=== PATIENT | female | born 1975 | race Caucasian/White ===

== ENCOUNTER 2022-05-24 14:30 | Emergency (ER) | payer MEDICAID, SELFPAY ==
[2022-05-24 14:38] VITALS: BP 182/108; PULSE 80; RESP 16; TEMP 37.1; O2SAT 100
--- NOTE | 2022-05-24 16:48 | ECG_ITS ---
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 Measurements Intervals [place] Rate: 72 P: 56 AK: 171 QRS: 55 QRSD: 86 T: 58 QT: 386 QTc: 424 Interpretive Statements SINUS RHYTHM POSSIBLE RIGHT VENTRICULAR CONDUCTION DELAY [RSR (QR) IN V1/V2] No previous ECG available for comparison Electronically Signed On 05-25-2022 19:45:54 INDUSTRIAL CONTROLLER by Herb Moon M.D. [email or web address] ([email or web address] va medical centerCraigsBlueBookwestern reserve hospitalPractice Management [id number]
--- NOTE | 2022-05-24 16:48 | ED_ITS ---
Documented by User: Francisco Gunderson DO 05/25/22 12:17 HPI - Dizziness General: Chief Complaint: Dizziness Stated Complaint: high BP Time Seen by Provider: 05/24/22 16:47 Source: patient Mode of arrival: ambulatory Limitations: no limitations History of Present Illness: HPI Narrative: 47-year-old female presents emergency room complaining of elevated blood pressure. She did elevated blood pressure at home was lightheaded and dizzy.She is felt nauseous as well. She has had similar episodes in the past unfortunately she is not on any blood pressure medications recently. She denies any chest pain or shortness of breath no abdominal pain. No cough fever sweats or chills. MD elicited complaint: dizziness and lightheadedness Onset (ago): hour(s) Timing: gradual onset Severity: moderate Description: lightheadedness and off-balance History of similar symptoms: Yes Exacerbating factors: nothing Relieving factors: nothing Associated symptoms: Reports headache(s); Denies change in hearing, chest pain, chills, cough, diaphoresis, ear discharge, ear pressure, fevers/chills, malaise, nausea, nasal congestion, palpitations, rash, short of breath, syncope, tinnitus, vomiting or weakness Associated neuro symptoms: Deny confusion, difficulty speaking, dysphagia, diplopia, extremity weakness, facial numbness, facial weakness, gait changes, numbness in extremities or visual changes Review of Systems Const: Reports: fatigue; Denies: fever(s), chills, malaise or diaphoresis ENMT: Denies: ear discharge, change in hearing, tinnitus or nasal congestion Card: Denies: chest pain, palpitations or syncope Resp: Denies: dyspnea, productive cough or non-productive cough GI: Denies: abdominal pain, nausea, vomiting or dysphagia : Denies: flank pain, difficulty voiding, dysuria, urinary frequency or urinary urgency Skin/Breast: Denies: rash or pruritus Neuro: Reports: headache(s); Denies: numbness in extremities or confusion PFS ED PFSH: Medical History (Updated 05/25/22 @ 12:16 by Francisco Gunderson DO) Hypertension Social History (Updated 05/25/22 @ 12:16 by Francisco Gunderson DO) Smoking and tobacco status: never smoked Second hand smoke exposure: No Alcohol intake: current Alcohol intake frequency: holidays/special occasions only Physical Exam Const: COMMON NORMALS: no acute distress GENERAL APPEARANCE: cooperative and comfortable ORIENTATION/CONSCIOUSNESS: Yes awake, Yes oriented to person, Yes oriented to place and Yes oriented to time HENMT: COMMON NORMALS: normocephalic, atraumatic, hearing grossly normal bilaterally, external ears normal, EAC's normal, TM's normal bilaterally, Normal nasal mucous membranes and turbinates present, moist oral mucous membranes and oropharynx normal HEAD & SCALP: normocephalic and atraumatic NOSE: Normal nasal mucous membranes and turbinates present EXTERNAL EAR: Yes external ears normal EXTERNAL AUDITORY CANAL: EAC's normal TYMPANIC MEMBRANE: TM's normal bilaterally Eye: COMMON NORMALS: Equal, round and reactive pupils present, EOMs intact bilaterally, conjunctivae normal and no scleral icterus CONJUNCTIVA: Yes conjunctivae normal PUPIL: Yes Equal, round and reactive pupils present Neck/C-Spine: COMMON NORMALS: full ROM, no lymphadenopathy, supple and no JVD Lymph: LYMPHATIC: no lymphadenopathy noted and no lymphedema noted Resp: COMMON NORMALS: normal respiratory effort, No retractions, No use of accessory muscles and clear to auscultation bilaterally AUSCULTATION: clear to auscultation bilaterally Cardio: COMMON NORMALS: no JVD, regular rate, regular rhythm and No murmurs present (Cardio) RATE: regular rate RHYTHM: regular rhythm GI: COMMON NORMALS: Soft to palpation and No hepatosplenomegaly present AUSCULTATION: Yes normoactive bowel sounds PALPATION: Yes Soft to palpation, No Tenderness to palpation present (GI), No Guarding due to palpation present (GI) and Yes No hepatosplenomegaly present Extremity: COMMON NORMALS: normal to inspection, capillary refill normal, no clubbing, cyanosis or edema, no calf tenderness and no pedal edema Neuro: SENSORIUM/ORIENTATION: Yes oriented to person, Yes oriented to place and Yes oriented to time Skin: COMMON NORMALS: no rashes or lesions noted GENERAL SKIN EXAM: no rashes or lesions noted Course Vital Signs: Vital signs: Vital Signs Temperature 98.2 F 05/24/22 20:39 Pulse Rate 92 05/24/22 20:39 Respiratory Rate 16 05/24/22 20:39 Blood Pressure 138/97 05/24/22 20:39 Pulse Oximetry 96 05/24/22 20:39 MDM - Dizziness Medical Decision Making Initial medications given for blood pressure control. She has had some slight improvement. Labs pending. Care signed out to Dr. Montelongo at change of shift. See final notes for diagnosis and disposition. 47-year-old female checked out to me by Dr. Gunderson at shift change. This lady has been dizzy. She is also quite hypertensive on arrival. Blood pressure is improved after administration of labetalol, hydralazine, and amlodipine and metoprolol orally. CBC is not remarkable. BMP is not remarkable. Head CT is nonacute. TSH is normal. BNP is normal. EKG shows no acute findings. Dizziness is improved after blood pressure is improved. She complained of a headache as well, and this is treated as well. She is now asking for a snack. She will be allowed discharge, but on antihypertensives. PCP follow-up. To return if worsening. Lab Data 05/24/22 17:02 05/24/22 17:[address] 05/24/22 18:55 IMPRESSION: No acute intracranial abnormality. Laboratory Results WBC 7.5 10^3/uL (4.0-10.0) 05/24/22 17:02 RBC 4.59 10^6/uL (4.1-5.3) 05/24/22 17:02 Hgb 14.3 g/dL (11.5-15.3) 05/24/22 17:02 Hct 42.0 % (37.0-47.0) 05/24/22 17:02 MCV 91.5 fl (81-99) 05/24/22 17:02 MCH 31.2 pg (28.0-34.0) 05/24/22 17:02 MCHC 34.0 g/dL (30.0-36.0) 05/24/22 17:02 RDW 12.6 % (12.1-15.1) 05/24/22 17:02 Plt Count 258 10^3/cmm (130-400) 05/24/22 17:02 MPV 10.2 fL (7.4-10.4) 05/24/22 17:02 Neut % (Auto) 73.6 % 05/24/22 17:02 Lymph % (Auto) 18.7 % 05/24/22 17:02 [place] % (Auto) 5.7 % 05/24/22 17:02 Eos % (Auto) 1.3 % 05/24/22 17:02 Baso % (Auto) 0.4 % 05/24/22 17:02 Neut # (Auto) 5.50 10^3/uL (1.8-7.7) 05/24/22 17:02 Lymph # (Auto) 1.4 10^3/uL (0.8-4.8) 05/24/22 17:02 [place] # (Auto) 0.4 10^3/uL (0.2-0.9) 05/24/22 17:02 Eos # (Auto) 0.1 10^3/uL (0.0-0.8) 05/24/22 17:02 Baso # (Auto) 0.0 10^3/uL (0.0-0.1) 05/24/22 17:02 Nucleated RBC % (auto) 0 % 05/24/22 17:02 Nucleated RBCs # 0.0 /100WBC 05/24/22 17:02 Sodium 139 mmol/L (136-145) 05/24/22 17:02 Potassium 3.8 mmol/L (3.5-5.1) 05/24/22 17:02 Chloride 100 mmol/L (98-107) 05/24/22 17:02 Carbon Dioxide 27 mmol/L (22-29) 05/24/22 17:02 Anion Gap 15.8 (5-19) 05/24/22 17:02 BUN 10 mg/dL (6-20) 05/24/22 17:02 Creatinine 0.7 mg/dL (0.5-0.9) 05/24/22 17:02 GFR Calculation 90.5 mL/min (90-130) 05/24/22 17:02 Glucose 108 mg/dL (65-115) 05/24/22 17:02 Calculated Osmolality 288 mOsm/kg (285-295) 05/24/22 17:02 Calcium 10.1 mg/dL (8.5-10.5) 05/24/22 17:02 Total Bilirubin 0.8 mg/dL (0.15-1.2) 05/24/22 17:02 AST 13 U/L (0-32) 05/24/22 17:02 ALT 16 U/L (0-33) 05/24/22 17:02 Alkaline Phosphatase 75 U/L (35-105) 05/24/22 17:02 NT-Pro-B Natriuret Pep 31 pg/mL (0-125) 05/24/22 17:02 Total Protein 7.9 g/dL (6.6-8.7) 05/24/22 17:02 Albumin 4.8 g/dL (3.5-5.2) 05/24/22 17:02 Globulin 3.1 g/dL (1.3-4.6) 05/24/22 17:02 TSH 0.96 uIU/mL (0.27-4.20) 05/24/22 17:02 Discharge Plan Discharge Patient Disposition: Home Clinical Impression: Hypertension, Dizziness Condition: Stable Prescriptions: New amlodipine 10 mg tablet 10 mg PO DAILY Qty: 30 0RF Discharge Orders: Discharge ED (Routine); Ordered 05/24/22 Ordered By: Bassam Montelongo Patient Instructions: Hypertension (ED), Dizziness (ED) Activity Restrictions/Additional Instructions: Check your blood pressure twice daily. If numbers are staying above 150/90, take the medication you were prescribed. See your doctor in follow-up. Return for any worsening headache, mental status changes, weakness, worsening dizziness, vomiting, chest discomfort, other concerning symptoms. Coding Level of Care Code ED Cloth Colorer for Chg Fwd Exam Comprehensive Documented by User: Bassam Montelongo DO 05/25/22 16:36 HPI - Dizziness 2 General: Chief Complaint: Dizziness Stated Complaint: high BP Time Seen by Provider: 05/24/22 16:47 PFSH ED PFSH: Medical History (Updated 05/25/22 @ 12:16 by Francisco Gunderson DO) Hypertension Social History (Updated 05/25/22 @ 12:16 by Francisco Gunderson DO) Smoking and tobacco status: never smoked Second hand smoke exposure: No Alcohol intake: current Alcohol intake frequency: holidays/special occasions only Course Vital Signs: Vital signs: Vital Signs Temperature 98.2 F 05/24/22 20:39 Pulse Rate 92 05/24/22 20:39 Respiratory Rate 16 05/24/22 20:39 Blood Pressure 138/97 05/24/22 20:39 Pulse Oximetry 96 05/24/22 20:39 MDM - Dizziness Medical Decision Making 47-year-old female checked out to me by Dr. Gunderson at shift change. This lady has been dizzy. She is also quite hypertensive on arrival. Blood pressure is improved after administration of labetalol, hydralazine, and amlodipine and metoprolol orally. CBC is not remarkable. BMP is not remarkable. Head CT is nonacute. TSH is normal. BNP is normal. EKG shows no acute findings. Dizziness is improved after blood pressure is improved. She complained of a headache as well, and this is treated as well. She is now asking for a snack. She will be allowed discharge, but on antihypertensives. PCP follow-up. To return if worsening. Lab Data 05/24/22 17:02 05/24/22 17:[address] 05/24/22 18:55 IMPRESSION: No acute intracranial abnormality. Laboratory Results WBC 7.5 10^3/uL (4.0-10.0) 05/24/22 17:02 RBC 4.59 10^6/uL (4.1-5.3) 05/24/22 17:02 Hgb 14.3 g/dL (11.5-15.3) 05/24/22 17:02 Hct 42.0 % (37.0-47.0) 05/24/22 17:02 MCV 91.5 fl (81-99) 05/24/22 17:02 MCH 31.2 pg (28.0-34.0) 05/24/22 17:02 MCHC 34.0 g/dL (30.0-36.0) 05/24/22 17:02 RDW 12.6 % (12.1-15.1) 05/24/22 17:02 Plt Count 258 10^3/cmm (130-400) 05/24/22 17:02 MPV 10.2 fL (7.4-10.4) 05/24/22 17:02 Neut % (Auto) 73.6 % 05/24/22 17:02 Lymph % (Auto) 18.7 % 05/24/22 17:02 [place] % (Auto) 5.7 % 05/24/22 17:02 Eos % (Auto) 1.3 % 05/24/22 17:02 Baso % (Auto) 0.4 % 05/24/22 17:02 Neut # (Auto) 5.50 10^3/uL (1.8-7.7) 05/24/22 17:02 Lymph # (Auto) 1.4 10^3/uL (0.8-4.8) 05/24/22 17:02 [place] # (Auto) 0.4 10^3/uL (0.2-0.9) 05/24/22 17:02 Eos # (Auto) 0.1 10^3/uL (0.0-0.8) 05/24/22 17:02 Baso # (Auto) 0.0 10^3/uL (0.0-0.1) 05/24/22 17:02 Nucleated RBC % (auto) 0 % 05/24/22 17:02 Nucleated RBCs # 0.0 /100WBC 05/24/22 17:02 Sodium 139 mmol/L (136-145) 05/24/22 17:02 Potassium 3.8 mmol/L (3.5-5.1) 05/24/22 17:02 Chloride 100 mmol/L (98-107) 05/24/22 17:02 Carbon Dioxide 27 mmol/L (22-29) 05/24/22 17:02 Anion Gap 15.8 (5-19) 05/24/22 17:02 BUN 10 mg/dL (6-20) 05/24/22 17:02 Creatinine 0.7 mg/dL (0.5-0.9) 05/24/22 17:02 GFR Calculation 90.5 mL/min (90-130) 05/24/22 17:02 Glucose 108 mg/dL (65-115) 05/24/22 17:02 Calculated Osmolality 288 mOsm/kg (285-295) 05/24/22 17:02 Calcium 10.1 mg/dL (8.5-10.5) 05/24/22 17:02 Total Bilirubin 0.8 mg/dL (0.15-1.2) 05/24/22 17:02 AST 13 U/L (0-32) 05/24/22 17:02 ALT 16 U/L (0-33) 05/24/22 17:02 Alkaline Phosphatase 75 U/L (35-105) 05/24/22 17:02 NT-Pro-B Natriuret Pep 31 pg/mL (0-125) 05/24/22 17:02 Total Protein 7.9 g/dL (6.6-8.7) 05/24/22 17:02 Albumin 4.8 g/dL (3.5-5.2) 05/24/22 17:02 Globulin 3.1 g/dL (1.3-4.6) 05/24/22 17:02 TSH 0.96 uIU/mL (0.27-4.20) 05/24/22 17:02 Discharge Plan Discharge Patient Disposition: Home Clinical Impression: Hypertension, Dizziness Condition: Stable Prescriptions: New amlodipine 10 mg tablet 10 mg PO DAILY Qty: 30 0RF Discharge Orders: Discharge ED (Routine); Ordered 05/24/22 Ordered By: Bassam Montelongo Patient Instructions: Hypertension (ED), Dizziness (ED) Activity Restrictions/Additional Instructions: Check your blood pressure twice daily. If numbers are staying above 150/90, take the medication you were prescribed. See your doctor in follow-up. Return for any worsening headache, mental status changes, weakness, worsening dizziness, vomiting, chest discomfort, other concerning symptoms. Coding Level of Care Code ED Cloth Colorer for Ar Fwd Exam Comprehensive
[2022-05-24] MEDS: amlodipine 10 mg Tablet PO ×2 (17:12→20:36)
[2022-05-24] MEDS: metoprolol tartrate 25 mg Tablet PO (17:12)
[2022-05-24 17:22] LABS: Basophils % 0.4 %; Eosinophils # 0.1 10^3/uL (0.0-0.8); Eosinophils % 1.3 %; Hemoglobin 14.3 g/dL (11.5-15.3); Lymphocytes # 1.4 10^3/uL (0.8-4.8); Lymphocytes % 18.7 %; Mean Corpuscular Hemoglobin 31.2 pg (28.0-34.0); Mean Corpuscular Volume 91.5 fl (81-99); Mean Platelet Volume 10.2 fL (7.4-10.4); Monocytes # 0.4 10^3/uL (0.2-0.9); Monocytes % 5.7 %; Neutrophils % 73.6 %; Nucleated Red Blood Cells % 0 %; Platelet Count 258 10^3/cmm (130-400); Red Blood Count 4.59 10^6/uL (4.1-5.3); Red Cell Distribution Width 12.6 % (12.1-15.1); White Blood Count 7.5 10^3/uL (4.0-10.0)
[2022-05-24] MEDS: labetalol 5 mg/mL SDV 20mL 10 MG IVP (17:24)
[2022-05-24 17:49] LABS: Alanine Aminotransferase 16 U/L (0-33); Albumin Level 4.8 g/dL (3.5-5.2); Alkaline Phosphatase 75 U/L (35-105); Anion Gap 15.8 (5-19); Aspartate Amino Transferase 13 U/L (0-32); Blood Urea Nitrogen 10 mg/dL (6-20); Calcium 10.1 mg/dL (8.5-10.5); Carbon Dioxide 27 mmol/L (22-29); Chloride 100 mmol/L (98-107); Globulin 3.1 g/dL (1.3-4.6); Glomerular Filtration Rate 90.5 mL/min (90-130); Glucose 108 mg/dL (65-115); NT Pro B Type Natriuretic Pept 31 pg/mL (0-125); Osmolality Calculated 288 mOsm/kg (285-295); Potassium 3.8 mmol/L (3.5-5.1); Sodium 139 mmol/L (136-145); Thyroid Stimulating Hormone 0.96 uIU/mL (0.27-4.20); Total Bilirubin 0.8 mg/dL (0.15-1.2); Total Protein 7.9 g/dL (6.6-8.7)
[2022-05-24 18:11] VITALS: BP 135/93; PULSE 99; RESP 15; O2SAT 98
[2022-05-24] MEDS: hyDRALAzine 20 mg/mL INJ 1 mL IVP (18:28)
--- NOTE | 2022-05-24 18:55 | CTR_ITS ---
PROCEDURE INFORMATION: Exam: CT Head Without Contrast Exam date and time: 05/24/2022 7:01 PM Age: 47 years old Clinical indication: Pain; Headache; Tension; Additional info: Headache HTN TECHNIQUE: Imaging protocol: Computed tomography of the head without contrast. Radiation optimization: All CT scans at this facility use at least one of these dose optimization techniques: automated exposure control; mA and/or kV adjustment per patient size (includes targeted exams where dose is matched to clinical indication); or iterative reconstruction. COMPARISON: No relevant prior studies available. RADIATION DOSE METRICS: Total DLP (mGy-cm): 1045.19 FINDINGS: Brain: Normal. No hemorrhage. Unremarkable white matter. No mass effect. Cerebral ventricles: No ventriculomegaly. Paranasal sinuses: Visualized sinuses are unremarkable. No fluid levels. Mastoid air cells: Visualized mastoid air cells are well aerated. Bones/joints: Unremarkable. No acute fracture. Soft tissues: Unremarkable. CT/CT head wo con* [id number] IMPRESSION: No acute intracranial abnormality.
[2022-05-24 20:39] VITALS: BP 138/97; PULSE 92; RESP 16; TEMP 36.8; O2SAT 96
== END 2022-05-24 20:41 | disposition home or self-care (01) ==
PROVIDERS: Emergency Medicine; Emergency Provider Emergency Medicine
DX: I10 Essential (primary) hypertension (principal); R42 Dizziness and giddiness
CPT/HCPCS: 36415; 70450; 80053; 83880; 84443; 85025; 93005; 96374; 96375; 99285; J0360; J3490

== ENCOUNTER → 2024-05-11 16:40 | Outpatient (BNVA) | payer SELFPAY | PROVIDERS: Visit Provider Nurse Practitioner | DX: J02.9 Acute pharyngitis, unspecified (principal) | CPT/HCPCS: 87070; 87071; 87880 ==